=== PATIENT | female | born 1990 | race Caucasian/White ===

== ENCOUNTER 2017-03-30 09:39 | Emergency (ER) | payer BC, OTHER ==
[2017-03-30 09:49] VITALS: RESP 16
[2017-03-30] MEDS ORDERED: MAG HYDROX/AL HYDROX/SIMETH 30 ML UDCUP PO ONE (10:23)
[2017-03-30] MEDS ORDERED: HYOSCYAMINE SULFATE 0.125 MG TAB PO ONE (10:23)
[2017-03-30] MEDS ORDERED: NS 1,000 ML IV ONE (10:23)
[2017-03-30] MEDS ORDERED: LIDOCAINE 2% VISCOUS 15 ML UDCUP PO ONE (10:23)
[2017-03-30] MEDS ORDERED: PANTOPRAZOLE SODIUM 40 MG VIAL IVP ONE (10:24)
--- NOTE | 2017-03-30 10:26 | EDPHY ---
H & P Stated Complaint: abd pain/blood in stool/hx ulcers HPI/ROS: CHIEF COMPLAINT: Sinus pain, bright red blood per rectum HISTORY OF PRESENT ILLNESS: Patient complains of 2 things. First complaint is sinus tenderness and pain. She has history of sinusitis and feels this is the same. Several days of this. Minimal improvement with [id number] medications. No fever. No severe headache. Second complaint is bright red blood in her stools. This started over the past 2 days. It was voluminous yesterday. Now just present on the stool. Associated with epigastric abdominal pain and discomfort. No nausea or vomiting. No dark tarry stools. She does have a history of peptic ulcer disease. She also has a history of anal fissures. She feels this is different. No other associated complaints or modifying factors. No anticoagulants. No trauma. No history of Crohn's or ulcerative colitis. REVIEW OF SYSTEMS: Ten systems reviewed and are negative unless otherwise noted in the HPI PAST MEDICAL HISTORY: Anal fissures, sinusitis, peptic ulcer PAST SURGICAL HISTORY: None SOCIAL HISTORY: Nonsmoker. No alcohol. Lives here independently FAMILY HISTORY: Noncontributory EXAMINATION General Appearance: Alert, no distress Head: normocephalic, atraumatic Eyes: Pupils equal and round, no conjunctival pallor or injection ENT, Mouth: Mucous membranes moist. Bilateral maxillary tenderness and frontal tenderness. Neck: Normal inspection, supple, non-tender Respiratory: Lungs are clear to auscultation no wheezing rhonchi or crackles Cardiovascular: Regular rate and rhythm no murmur. Gastrointestinal: Abdomen is soft mild tenderness in the epigastrium.. No distention or tympany. No rigidity or guarding. Nonacute abdomen Rectal exam: Female RN present. Normal tone. No external hemorrhoids. No anal fissure. No palpable masses. Normal appearing stool. Occult test performed Back: non-tender, no bony abnormalities Neurological: GCS 15. A&O, nonfocal, normal gait Skin: Warm and dry, no rash no petechiae or purpura Extremities: Nontender, no pedal edema Psychiatric: Mood and affect normal DIFFERENTIAL DIAGNOSES: Including but not limited to lower GI bleed, upper GI bleed, peptic ulcer, Crohn 's, ulcerative colitis, hemorrhoid, sinusitis MDM: 10:20 a.m. Acute on chronic sinusitis with 2nd complaint of abdominal pain and bright red blood per stool. Examination suggest gastritis versus peptic ulcer in addition to the bright red blood. Abdominal exam is benign with mild epigastric tenderness. Rectal exam reveals normal appearing stool and I will send for occult blood. Vital signs are within normal limits. Laboratory studies pending. She does not warrant an emergent CT scan at this time pending laboratory studies. 11:45 a.m. Laboratory studies are all within normal limits. I have re-evaluated the patient and she continues to improve but does have some moderate pain the epigastrium still. Due to her known history of peptic ulcer I will order CT scan rule out perforation. Low clinical suspicion for this. 12:45 p.m. Notified by radiologist Dr. Craig. CT scan of the abdomen and pelvis is unremarkable for any acute findings. 12:55 p.m. Have re-evaluated the patient. She feels significantly better. We discuss over -the-counter medications for her chronic sinusitis and she is comfortable this and does not want antibiotics. We discussed follow up with primary care physician established ENT physician. Additionally I will refer her to gastroenterology for the bright red blood in the stool. Vital signs are within normal limits. Hemoglobin is normal. No anticoagulation. We discussed ER precautions and she is comfortable this plan. She is discharged home stable condition. Source: Patient Exam Limitations: No limitations - Personal History LMP (Females 10-55): 15-21 Days Ago Current Tetanus/Diphtheria Vaccine: No - Medical/Surgical History Hx Asthma: No Hx Chronic Respiratory Disease: No Hx Diabetes: No Hx Cardiac Disease: No Hx Renal Disease: No Hx Cirrhosis: No Hx Alcoholism: No Hx HIV/AIDS: No Hx Splenectomy or Spleen Trauma: No Other PMH: ulcers/fibromyalgia - Social History Smoking Status: Never smoked Constitutional: Initial Vital Signs Temperature (C) 98.4 F 03/30/17 09:45 Heart Rate 82 03/30/17 09:45 Respiratory Rate 16 03/30/17 09:45 Blood Pressure 126/84 H 03/30/17 09:45 O2 Sat (%) 96 03/30/17 09:45 O2 Delivery Mode Room Air Allergies/Adverse Reactions: No Known Allergies Allergy (Unverified 03/30/17 09:45) Home Medications: Medication Instructions Recorded Pantoprazole Sodium [Protonix] 40 mg PO DAILY #30 tablet. 03/30/17 Sucralfate [Carafate 1gm/10ml Oral 1 gm PO QID PRN #240 ml 03/30/17 Liquid (*)] Medical Decision Making - Diagnostics Imaging Results: Imaging Impressions Abdomen CT 03/30/17 11:53 Impression: 1. Normal CT abdomen and pelvis with contrast enhancement. 2. No CT evidence of appendicitis, abscess or bowel obstruction. 3. Incidental bilateral spondylolysis of the L5 pars interarticularis without spondylolisthesis. Findings discussed with Hiram Briones PAC at 12:49 hour, 03/30/2017. - Data Points Laboratory Results: Laboratory Results 03/30/17 10:45 03/30/17 10:45 03/30/17 03/30/17 03/30/17 11:15 10:45 10:45 WBC RBC Hgb Hct MCV MCH MCHC RDW Plt Count MPV Neut % (Auto) Lymph % (Auto) Treasure % (Auto) Eos % (Auto) Baso % (Auto) Nucleat RBC Rel Count Absolute Neuts (auto) Absolute Lymphs (auto) Absolute Monos (auto) Absolute Eos (auto) Absolute Basos (auto) Absolute Nucleated RBC Immature Gran % Immature Gran # Sodium 140 mEq/L mEq/L (134-144) Potassium 4.1 mEq/L mEq/L (3.5-5.2) Chloride 104 mEq/L mEq/L (97-110) Carbon Dioxide 23 mEq/l mEq/l (22-31) Anion Gap 13 mEq/L mEq/L (8-16) BUN 12 mg/dL mg/dL (7-23) Creatinine 0.9 mg/dL mg/dL (0.6-1.0) Estimated GFR > 60 Glucose 82 mg/dL mg/dL (70-100) Calcium 9.7 mg/dL mg/dL (8.5-10.4) Total Bilirubin 0.6 mg/dL mg/dL (0.1-1.4) Conjugated Bilirubin 0.3 mg/dL mg/dL (0.0-0.5) Unconjugated Bilirubin 0.3 mg/dL mg/dL (0.0-1.1) AST 34 IU/L IU/L (14-46) ALT 52 IU/L IU/L (9-52) Alkaline Phosphatase 70 IU/L IU/L (38-126) Total Protein 7.7 g/dL g/dL (6.3-8.2) Albumin 4.5 g/dL g/dL (3.5-5.0) Lipase 43 IU/L IU/L (23-300) Beta HCG, Qual NEGATIVE Urine Color YELLOW Urine Appearance CLEAR Urine pH 5.0 (5.0-7.5) Ur Specific [place] 1.015 (1.002-1.030) Urine Protein NEGATIVE (NEGATIVE) Urine Ketones NEGATIVE (NEGATIVE) Urine Blood NEGATIVE (NEGATIVE) Urine Nitrate NEGATIVE (NEGATIVE) Urine Bilirubin NEGATIVE (NEGATIVE) Urine Urobilinogen NEGATIVE EU EU (0.2-1.0) Ur Leukocyte Esterase NEGATIVE (NEGATIVE) Urine RBC 1-3 /hpf /hpf (0-3) Urine WBC 1-3 /hpf /hpf (0-3) Ur Epithelial Cells TRACE /lpf /lpf (NONE-1+) Urine Mucus TRACE /lpf /lpf (NONE-1+) Urine Glucose NEGATIVE (NEGATIVE) Stool Occult Bld Scrn 03/30/17 03/30/17 10:45 10:20 WBC 9.71 10^3/uL H 10^3/uL (3.80-9.50) RBC 4.54 10^6/uL 10^6/uL (4.18-5.33) Hgb 13.7 g/dL g/dL (12.6-16.3) Hct 40.1 % % (38.0-47.0) MCV 88.3 fL fL (81.5-99.8) MCH 30.2 pg pg (27.9-34.1) MCHC 34.2 g/dL g/dL (32.4-36.7) RDW 11.9 % % (11.5-15.2) Plt Count 236 10^3/uL 10^3/uL (150-400) MPV 11.9 fL H fL (8.7-11.7) Neut % (Auto) 74.7 % H % (39.3-74.2) Lymph % (Auto) 10.7 % L % (15.0-45.0) Treasure % (Auto) 9.6 % % (4.5-13.0) Eos % (Auto) 2.4 % % (0.6-7.6) Baso % (Auto) 0.8 % % (0.3-1.7) Nucleat RBC Rel Count 0.0 % % (0.0-0.2) Absolute Neuts (auto) 7.26 10^3/uL H 10^3/uL (1.70-6.50) Absolute Lymphs (auto) 1.04 10^3/uL 10^3/uL (1.00-3.00) Absolute Monos (auto) 0.93 10^3/uL H 10^3/uL (0.30-0.80) Absolute Eos (auto) 0.23 10^3/uL 10^3/uL (0.03-0.40) Absolute Basos (auto) 0.08 10^3/uL 10^3/uL (0.02-0.10) Absolute Nucleated RBC 0.00 10^3/uL 10^3/uL (0-0.01) Immature Gran % 1.8 % H % (0.0-1.1) Immature Gran # 0.17 10^3/uL H 10^3/uL (0.00-0.10) Sodium Potassium Chloride Carbon Dioxide Anion Gap BUN Creatinine Estimated GFR Glucose Calcium Total Bilirubin Conjugated Bilirubin Unconjugated Bilirubin AST ALT Alkaline Phosphatase Total Protein Albumin Lipase Beta HCG, Qual Urine Color Urine Appearance Urine pH Ur Specific [place] Urine Protein Urine Ketones Urine Blood Urine Nitrate Urine Bilirubin Urine Urobilinogen Ur Leukocyte Esterase Urine RBC Urine WBC Ur Epithelial Cells Urine Mucus Urine Glucose Stool Occult Bld Scrn POSITIVE H (NEGATIVE) Medications Given: Discontinued Medications Al Hydroxide/Mg Hydroxide (Maalox Susp) 30 ml PO ONCE ONE Stop: 03/30/17 10:24 Last Admin: 03/30/17 11:10 Dose: 30 ml Hyoscyamine Sulfate (Levsin, Hyomax-Sl) 0.25 mg PO ONCE ONE Stop: 03/30/17 10:24 Last Admin: 03/30/17 11:10 Dose: 0.25 mg Sodium Chloride (Ns) 1,000 mls @ 0 mls/hr IV EDNOW ONE; Wide Open PRN Reason: Protocol Stop: 03/30/17 10:24 Last Admin: 03/30/17 11:08 Dose: 1,000 mls Lidocaine (Lidocaine 2% Viscous) 15 ml PO ONCE ONE Stop: 03/30/17 10:24 Last Admin: 03/30/17 11:11 Dose: 15 ml Pantoprazole Sodium (Protonix) 40 mg IVP EDNOW ONE Stop: 03/30/17 10:25 Last Admin: 03/30/17 11:08 Dose: 40 mg Departure - Departure Disposition: Home, Routine, Self-Care Clinical Impression: Fecal occult blood test positive, Epigastric pain Condition: Good Instructions: Gastritis (ED), Rectal Bleeding (ED) Additional Instructions: 1. PPI medication as prescribed until seen by GI physician 2. Contact GI for outpatient follow-up 3. Advance diet slowly as discussed as tolerated 4. ED precautions for worsening bleeding, lightheadedness, dizziness chest pain Referrals: NONE *PRIMARY CARE P,. [Primary Care Provider] - As per Instructions Niranjan Andrade MD [[facility] [place]] - As per Instructions Angeles Padilla MD [Medical Doctor] - As per Instructions Prescriptions: Pantoprazole Sodium [Protonix] 40 mg PO DAILY #30 tablet. Sucralfate [Carafate 1gm/10ml Oral Liquid (*)] 1 gm PO QID PRN #240 ml PRN Reason: Pain, Breakthrough
[2017-03-30 10:56] LABS: % IMMATURE GRANULYOCYTES 1.8 % (0.0-1.1); ABSOLUTE IMMATURE GRANULOCYTES 0.17 10^3/uL (0.00-0.10); ADD DIFF? NO; ADD MORPH? NO; ADD SCAN? NO; ATYPICAL LYMPHOCYTE FLAG 10 (0-99); FRAGMENT RBC FLAG 0 (0-99); HEMATOCRIT 40.1 % (38.0-47.0); HEMOGLOBIN 13.7 g/dL (12.6-16.3); LEFT SHIFT FLG 10 (0-99); LIPEMIA HEMOLYSIS FLAG 90 (0-99); MEAN CELL HEMOGLOBIN 30.2 pg (27.9-34.1); MEAN CELL HEMOGLOBIN CONCENTR. 34.2 g/dL (32.4-36.7); MEAN CELL VOLUME 88.3 fL (81.5-99.8); MEAN PLATELET VOLUME 11.9 fL (8.7-11.7); PLATELET CLUMPS FLAG 0 (0-99); PLATELET COUNT 236 10^3/uL (150-400); RED BLOOD CELL COUNT 4.54 10^6/uL (4.18-5.33); RED CELL DISTRIBUTION WIDTH 11.9 % (11.5-15.2)
[2017-03-30 11:13] LABS: ALANINE AMINOTRANSFERASE 52 IU/L (9-52); ALBUMIN 4.5 g/dL (3.5-5.0); ALKALINE PHOSPHATASE 70 IU/L (38-126); ANION GAP 13 mEq/L (8-16); ASPARTATE AMINOTRANSFERASE 34 IU/L (14-46); BILIRUBIN,TOTAL 0.6 mg/dL (0.1-1.4); BILIRUBIN-CONJUGATED 0.3 mg/dL (0.0-0.5); BILIRUBIN-UNCONJUGATED 0.3 mg/dL (0.0-1.1); CALCIUM 9.7 mg/dL (8.5-10.4); CARBON DIOXIDE 23 mEq/l (22-31); CHLORIDE 104 mEq/L (97-110); CREATININE 0.9 mg/dL (0.6-1.0); GLOMERULAR FILTRATION RATE > 60; GLUCOSE 82 mg/dL (70-100); POTASSIUM 4.1 mEq/L (3.5-5.2); SODIUM 140 mEq/L (134-144); TOTAL PROTEIN 7.7 g/dL (6.3-8.2)
[2017-03-30 11:28] LABS: COLOR YELLOW; LEUKOCYTE ESTERASE,URINE NEGATIVE (NEGATIVE); NITRITE,URINE NEGATIVE (NEGATIVE)
[2017-03-30 11:31] LABS: MUCUS TRACE /lpf (NONE-1+)
[2017-03-30] MEDS ORDERED: IOPAMIDOL (ISOVUE-300) 100 ML BTL ONE (11:55)
[2017-03-30 13:27] VITALS: BP 128/75; PULSE 75; TEMP 98.2; O2SAT 95
== END 2017-03-30 13:27 | disposition home or self-care (01) ==
DX: R19.5 Other fecal abnormalities (principal); R10.13 Epigastric pain; E86.9 Volume depletion, unspecified
CPT/HCPCS: 96374; Q9967